=== PATIENT | male | born 1985 | race Caucasian/White ===

== ENCOUNTER 2017-05-18 21:54 | Emergency (ER) | payer MEDICAID, OTHER ==
[~2017-05-18] VITALS: Ht 182.9 cm; Wt 89.7 kg
[2017-05-18 22:10] VITALS: BP 122/81
[2017-05-18] MEDS ORDERED: SULF1TAB49 PO (23:09)
== END 2017-05-18 23:19 | disposition home or self-care (01) ==
LOC: ER 21:55
DX: L02.511 Cutaneous abscess of right hand (principal)
CPT/HCPCS: 99283